=== PATIENT | male | born 1985 | race American Indian/Alaskan Native ===

== ENCOUNTER 2025-05-09 17:49 | Emergency (ER) | payer BC, OTHER ==
[~2025-05-09] VITALS: Ht 175.3 cm; Wt 80.0 kg
[~2025-05-09 17:49] MED LIST: AMOXICILLIN500 MG PO; DAY TIME COLD-1 EAC1 PO
[2025-05-09] MEDS ORDERED: IBUPROFEN 600 MG TAB PO ONE (18:00)
[2025-05-09 18:51] VITALS: BP 149/102
== END 2025-05-09 18:51 | disposition home or self-care (01) ==
LOC: ED 17:49
DX: Z04.3 Encounter for examination and observation following other accident (principal); F17.200 Nicotine dependence, unspecified, uncomplicated; X08.8XXA Exposure to other specified smoke, fire and flames, initial encounter
CPT/HCPCS: 99283; A9270